=== PATIENT | male | born 1970 | race Two or more races ===

== ENCOUNTER 2019-08-12 12:43 | Emergency (ER) | payer MEDICARE ==
[~2019-08-12] VITALS: Ht 180.3 cm; Wt 82.0 kg
[2019-08-12 13:25] VITALS: BP 103/66
== END 2019-08-12 14:18 | disposition home or self-care (01) ==
LOC: ED 13:45
DX: I95.2 Hypotension due to drugs (principal)
CPT/HCPCS: 99281

== ENCOUNTER 2019-08-19 11:43 | Emergency (ER) | payer MEDICARE ==
[~2019-08-19] VITALS: Ht 180.3 cm; Wt 80.9 kg
--- NOTE | 2019-08-19 12:27 | NUR ---
PT HERE TODAY WORRIED ABOUT HERE BP- STATES SHE WAS LOW AT [place] THE OTHER DAY AND HAS BEEN FEELING LIGHTHEADED ON AND OFF. SAW HER PCP ON Jul. METOPROLOL WAS CUT FROM 100MG TO 50MG AT THAT TIME. PT TRINI RESTING ON GURSHARATH. EDWARDN. VSS. PROVIDED WITH WARM BLANKET.
[2019-08-19 12:28] VITALS: BP 114/78
--- NOTE | 2019-08-19 13:18 | NUR ---
MD AT BEDSIDE ASSESSING PT NOW.
--- NOTE | 2019-08-19 13:26 | NUR ---
PT AMBULATORY WITH STEADY GAIT TO BATHROOM.
--- NOTE | 2019-08-19 13:28 | NUR ---
PT GETTING DRESSED NOW, AWARE OF DC PLAN.
== END 2019-08-19 13:43 | disposition home or self-care (01) ==
LOC: ED 13:30
DX: R42 Dizziness and giddiness (principal); I10 Essential (primary) hypertension
CPT/HCPCS: 99281

== ENCOUNTER 2020-08-09 18:11 | Emergency (ER) | payer MEDICARE, MEDICAID ==
[~2020-08-09] VITALS: Ht 180.3 cm; Wt 88.5 kg
[2020-08-09 18:18] VITALS: BP 101/71
--- NOTE | 2020-08-09 18:56 | NUR ---
Patient given discharge instructions and they have confirmed that they understand the instructions. Patient ambulatory with steady gait.
== END 2020-08-09 18:57 | disposition home or self-care (01) ==
LOC: ED 18:19
DX: I10 Essential (primary) hypertension (principal); Z76.0 Encounter for issue of repeat prescription
CPT/HCPCS: 99281